=== PATIENT | male | born 1955 | race Caucasian/White ===

== ENCOUNTER 2017-11-03 09:34 | Day surgery (SDC) | payer OTHER ==
[2017-10-28 10:29] VITALS: BP 143/92
[~2017-11-03] VITALS: Ht 182.9 cm; Wt 113.0 kg
[~2017-11-03 09:34] MED LIST: ASPI-621 PO; ATOR40TA PO; ENAL5TAB70 PO; LISI-170 PO; METO50TA82 PO; NICO-487 TD; NITR0.4T28 SL; PANT40TA5 PO; PRAS10TA4 PO
[2017-11-03] MEDS ORDERED: ASPI-496 PO (10:17)
[2017-11-03] MEDS ORDERED: LACTATED RINGERS 1,000 ML IV SCH (10:21)
[2017-11-03] MEDS ORDERED: EPINEPHRINE 1 MG/ML, 1ML ONE (13:45)
[2017-11-03] MEDS ORDERED: DEXAMETHASONE 4 MG/ML, 1ML ONE (14:00)
[2017-11-03] MEDS ORDERED: PROPOFOL 10 MG/ML, 20ML ONE ×2 (14:00)
[2017-11-03] MEDS ORDERED: SUCCINYLCHOLINE 20 MG/ML, 10ML ONE (14:02)
[2017-11-03] MEDS ORDERED: FENTANYL PF 100 MCG/2ML ONE (14:02)
== END 2017-11-03 16:05 ==
LOC: OUT 09:34
PROVIDERS: ATTEND Internal Medicine Geriatric Medicine
DX: I85.10 Secondary esophageal varices without bleeding (principal); K70.30 Alcoholic cirrhosis of liver without ascites; K80.20 Calculus of gallbladder without cholecystitis without obstruction; Z72.89 Other problems related to lifestyle
CPT/HCPCS: 43259; 93005; J0171; J0330; J1100; J2704; J3010; J7120